=== PATIENT | male | born 1975 | race Caucasian/White ===

== ENCOUNTER 2025-06-23 09:02 | Outpatient (CLI) | payer BC | END 2025-06-23 09:03 | disposition home or self-care (01) | LOC: CSHSLEEP 09:02 | PROVIDERS: ATTEND Family Medicine | DX: G47.33 Obstructive sleep apnea (adult) (pediatric) (principal); R53.83 Other fatigue; E66.9 Obesity, unspecified; Z68.35 Body mass index [BMI] 35.0-35.9, adult; R06.83 Snoring | CPT/HCPCS: 95800 ==